=== PATIENT | female | born 1935 | race Caucasian/White ===

== ENCOUNTER 2022-10-13 14:03 | Emergency (ER) | payer MEDICARE ==
[2022-10-13] MEDS ORDERED: Ibuprofen 600 MG TAB ONE (14:32)
== END 2022-10-13 15:20 | disposition home or self-care (01) ==
LOC: MADERS 14:03
DX: M76.62 Achilles tendinitis, left leg (principal); I10 Essential (primary) hypertension; E03.9 Hypothyroidism, unspecified; E78.5 Hyperlipidemia, unspecified

== ENCOUNTER 2022-11-03 14:43 | Emergency (ER) | payer MEDICARE ==
[2022-11-03] MEDS ORDERED: dilTIAZem 25 MG/5 ML VIAL ONE (15:19)
[2022-11-03 15:28] LABS: #Basophils 0.2 thou/uL (0.0-0.2); #Eosinphils 0.1 thou/uL (0.0-0.7); #Lymphocytes 0.6 thou/uL (1.20-3.40); #Monocytes 0.9 thou/uL (0.11-0.59); #Neutrophils 11.3 thou/uL (1.40-6.50); %Basophils 1.6 % (0.0-1.0); %Eosinophils 0.6 % (0.0-10.0); %Lymphocytes 4.4 % (21.0-51.0); %Monocytes 6.9 % (0.0-10.0); %Neutrophils 86.5 % (42.0-75.0); Hematocrit 41.6 % (36.0-47.0); Hemoglobin 13.3 g/dL (12.0-16.0); Mean Corpuscular Hemoglobin 29.7 pg (27.0-31.0); Mean Platelet Volume 8.8 fL (7.4-10.4); Platelet Count 258 10x3/uL (130-400); RBC Distribution Width 13.9 % (11.5-14.5); Red Blood Cell (RBC) Count 4.47 mill/uL (4.20-5.40)
[2022-11-03] MEDS ORDERED: Sodium Chloride 0.9% 500 ML ONE (15:38)
[2022-11-03 15:42] LABS: ALT (SGPT) 49 U/L (8-55); AST (SGOT) 32 U/L (5-34); Albumin 3.5 g/dL (3.4-4.8); Alkaline Phosphatase 66 U/L (40-110); Anion Gap 17 mmol/L (10-20); BUN (Urea Nitrogen) 22 mg/dL (9.8-20.1); Bilirubin, Total 1.6 mg/dL (0.2-1.2); Calc. Creatinine Clearance 0 mL/min (70-130); Calcium 9.1 mg/dL (7.8-10.44); Carbon Dioxide 22 mmol/L (23-31); Chloride 109 mmol/L (98-107); Estimated GFR 56; Globulin 3.5 g/dL (2.4-3.5); Glucose 134 mg/dL (83-110); Sodium 144 mmol/L (136-145)
[2022-11-03 15:43] LABS: Troponin I 0.014 ng/mL (< 0.028)
[2022-11-03] MEDS ORDERED: Sodium Chloride 0.9% 100 ML ONE (16:32)
[2022-11-03] MEDS ORDERED: dilTIAZem 125 MG/25 ML SDV ONE (16:32)
[2022-11-03] MEDS ORDERED: Furosemide 20 MG/2 ML VIAL ONE (18:12)
[2022-11-03 18:38] LABS: Bilirubin Small (Negative); Blood, Urine Negative (Negative); Glucose, Urine (Dipstick) Negative (Negative); Ketone, Urine Trace mg/dL (Negative); Leukocyte Negative (Negative); Nitrite Negative (Negative); Protein, Urine (Dipstick) 30 mg/dL (Neg-Trace); pH, Urine 5.5 (5.0-9.0)
[2022-11-03 18:44] LABS: Clarity Hazy (Clear)
[2022-11-03 18:45] LABS: Bacteria/HPF 1+ HPF (None Seen); CAUTI Indications for Culture Pelvic or flank pain; RBC/HPF 0-3 HPF (0-3); Specific Gravity, Urine 1.035 (1.002-1.036)
[2022-11-03 18:47] LABS: Urine Culture Reflex No No
== END 2022-11-03 19:10 | disposition short-term general hospital (02) ==
LOC: MADERS 14:43
DX: I48.91 Unspecified atrial fibrillation (principal); R79.1 Abnormal coagulation profile; I10 Essential (primary) hypertension; E03.9 Hypothyroidism, unspecified; Z79.899 Other long term (current) drug therapy
CPT/HCPCS: 71045; 71275; 80053; 81001; 83880; 84484; 85025; 85379; 93005; 96365; 96366; 96375; 96376; J1940; J3490; J7030